=== PATIENT | male | born 2000 | race Two or more races ===

== ENCOUNTER 2021-08-17 15:49 | Emergency (ER) | payer MEDICAID ==
[~2021-08-17] VITALS: Ht 175.3 cm; Wt 78.4 kg
[2021-08-17 15:51] VITALS: BP 147/81
[2021-08-17] MEDS ORDERED: ORPHENADRINE CITRATE 60 MG/2 ML VIAL. IM ONE (16:15)
[2021-08-17] MEDS ORDERED: KETOROLAC 60 MG/2 ML VIAL. IM ONE (16:15)
[2021-08-17] MEDS ORDERED: IBUP-1007 PO (17:04)
[2021-08-17] MEDS ORDERED: HYDR-2761 PO (17:04)
[2021-08-17] MEDS ORDERED: CYCL10TA19 PO (17:04)
--- NOTE | 2021-08-17 17:05 | PHYS DOC ---
Past Medical History Past Medical History: No Pertinent History Past Surgical History: No Surgical History General Adult EDM: Chief Complaint: BACK PAIN OR INJURY HPI: HPI: Patient is a 20-year-old male that presents today with middle to low back pain after taking out the trash. Patient states that approximately 1 to 2 hours prior to arrival he was taking out the trash and he felt a pulling sensation in his lower back and has since had low back pain and making it difficult to move or get around. Patient denies difficulty voiding or stooling, he has not had any loss of bowel or bladder issues, he just says that it is difficult to get around. Patient has never had a back injury in the past he works as a shuttle van driver. Review of Systems: Review of Systems: Constitutional: Denies fever or chills. [] Eyes: Denies change in visual acuity. [] HENT: Denies nasal congestion or sore throat. [] Respiratory: Denies cough or shortness of breath. [] Cardiovascular: Denies chest pain or edema. [] GI: Denies abdominal pain, nausea, vomiting, bloody stools or diarrhea. [] : Denies dysuria. [] Musculoskeletal: Back pain Integument: Denies rash. [] Neurologic: Denies headache, focal weakness or sensory changes. [] Endocrine: Denies polyuria or polydipsia. [] Lymphatic: Denies swollen glands. [] Psychiatric: Denies depression or anxiety. [] Heart Score: C/O Chest Pain: N/A Risk Factors: Risk Factors: DM, Current or recent (<one month) smoker, HTN, HLP, family history of CAD, obesity. Risk Scores: Score 0 - 3: 2.5% MACE over next 6 weeks - Discharge Home Score 4 - 6: 20.3% MACE over next 6 weeks - Admit for Clinical Observation Score 7 - 10: 72.7% MACE over next 6 weeks - Early Invasive Strategies Current Medications: Current Medications Medications (Trade) Dose Ordered Sig/Consuelo Start Time Stop Time Status Last Admin Dose Admin Ketorolac Tromethamine (Toradol Im) 60 mg 1X ONCE 08/17/21 16:15 08/17/21 16:16 DC 08/17/21 16:30 60 MG Orphenadrine Citrate (Norflex) 60 mg 1X ONCE 08/17/21 16:15 08/17/21 16:16 DC 08/17/21 16:29 60 MG Allergies: Allergies: Allergies Coded Allergies Type Severity Reaction Last Updated Verified No Known Drug Allergies 08/17/21 No Physical Exam: PE: Constitutional: Well developed, well nourished, mild distress, non-toxic appearance. [] HENT: Normocephalic, atraumatic, bilateral external ears normal, oropharynx moist, no oral exudates, nose normal. [] Eyes: PERRLA, EOMI, conjunctiva normal, no discharge. [] Neck: Normal range of motion, no tenderness, supple, no stridor. [] Cardiovascular:Heart rate regular rhythm, no murmur [] Lungs & Thorax: Bilateral breath sounds clear to auscultation [] Abdomen: Bowel sounds normal, soft, no tenderness, no masses, no pulsatile masses. [] Skin: Warm, dry, no erythema, no rash. [] Back: Back pain noted with palpation over the lower thoracic area upper lumbar area, no abrasions contusions or ecchymosis noted to this area, no midline ten derness or crepitus noted, patient is able to ambulate with no foot drop or weakness noted in any extremity but does say its painful, sensory is intact distal to the injury he has 2+ pedal pulses and cap refills less than 2 seconds. Extremities: No tenderness, no cyanosis, no clubbing, ROM intact, no edema. [] Neurologic: Alert and oriented X 3, normal motor function, normal sensory function, no focal deficits noted. [] Psychologic: Affect normal, judgement normal, mood normal. [] Current Patient Data: Vital Signs: Vital Signs Date Time Temp Pulse Resp B/P (MAP) Pulse Ox O2 Delivery O2 Flow Rate FiO2 08/17/21 15:51 98.3 74 20 147/81 (103) 98 Room Air 98.3 EKG: EKG: [] Radiology/Procedures: Radiology/Procedures: [] Course & Med Decision Making: Course & Med Decision Making Pertinent Labs and Imaging studies reviewed. (See chart for details) 1654 patient states his pain has improved but he still has pain, told him that he will continue to have some pain the pain medication should help control it, he will need to ice affected areas 20 minutes on 3-4 times daily, take Motrin 600 mg every 6 hours as needed for mild to moderate pain, patient will be given a prescription for hydrocodone 1 tablet every 6 hours as needed for moderate to severe pain, he will also be given Flexeril 10 mg every 8 hours as needed for muscle spasms. Patient is instructed to follow-up with his primary care physician or one of the community resources listed in the brochure or on the discharge papers for further management of his low back pain. Patient is instructed to return to the emergency department if he has loss of bowel or bladder control, he has numbness and tingling in his legs, or he has any other issues related to his back. Jamey Disclaimer: Jamey Disclaimer: This electronic medical record was generated, in whole or in part, using a voice recognition dictation system. Departure Departure Impression: Primary Impression: Back pain Qualified Codes: M54.9 - Dorsalgia, unspecified Disposition: HOME / SELF CARE / HOMELESS Condition: STABLE Patient Instructions: Back Exercises, Back Pain, Adult Additional Instructions: Ice 20 minutes on 3-4 times daily to the affected area to help with localized pain control and swelling Motrin 600 mg take 1 tablet every 6 hours as needed for mild to moderate pain, use with caution take with food may cause stomach upset Hydrocodone take 1 tablet every 6 hours as needed for moderate to severe pain, use with caution may cause drowsiness and constipation if taken on a regular basis Flexeril 10 mg take 1 tablet every 8 hours as needed for muscle spasms, use with caution may cause drowsiness Follow-up with your primary care physician or one of the clinics listed in the brochure on this discharge paperwork for further management of your low back pain. Return to the emergency department if you have numbness or tingling in your legs, your pain is not controlled with the pain medication provided, you have loss of bowel or bladder control, or your inability to use the bathroom. [facility] [address] [place] [address] [facility] [address] [place] [address] [facility] [address] [facility] [place] [address] [facility] [address] [place] [address] [facility] [address] [place] [address] [address] [place] [address] [address] [place] [address] [facility] [address] [place] [address] [facility] [address] [place] [address] [facility] [address] [place] [address] [facility] Hydrocodone Bit/Acetaminophen (HYDROCODONE-APAP 5-325 ) 1 Tab Tablet 1 TAB PO PRN Q6HRS PRN for PAIN, #10 TAB 0 Refills Prov: JULIAN SIM FISHER DIVER NET 08/17/21 Ibuprofen (IBUPROFEN) 600 Mg Tablet 600 MG PO PRN Q6HRS PRN for INFLAMMATION, #30 TAB Prov: JULIAN SIM FISHER [employer]IVER [employer] 08/17/21 Cyclobenzaprine Hcl (CYCLOBENZAPRINE HCL) 10 Mg Tablet 10 MG PO TID PRN PRN for MUSCLE SPASMS, #14 TAB Prov: JULIAN SIM FISHER DIVER NET 08/17/21 JULIAN SIM FISHER DIVER NET Aug 17, 2021 17:05
== END 2021-08-17 17:15 | disposition home or self-care (01) ==
LOC: ER 15:49
DX: M54.50 Low back pain, unspecified (principal); M54.6 Pain in thoracic spine
CPT/HCPCS: 96372; 99284; J1885; J2360